=== PATIENT | female | born 1940 | race Caucasian/White ===

== ENCOUNTER 2021-05-26 20:15 | Inpatient (IN) | payer MEDICARE, OTHER ==
[~2021-05-26] VITALS: Ht 157.5 cm; Wt 77.1 kg
[2021-05-26 20:35] LABS: HEMOGLOBIN 10.4 gm/dl (12.3-15.3); RED BLOOD COUNT 3.59 M/UL (4.00-5.10); WHITE BLOOD COUNT 23.5 K/UL (4.5-11.0)
[2021-05-26 21:22] LABS: BUN/CREATININE RATIO 30 (0-10)
[2021-05-26] MEDS ORDERED: ASPIRIN81 MG PO (23:05)
[2021-05-26] MEDS ORDERED: CETIRIZINE HCL5 MG PO (23:06)
[2021-05-26] MEDS ORDERED: FUROSEMIDE20 MG PO (23:07)
[2021-05-26] MEDS ORDERED: NEURONTIN300 MG PO (23:07)
[2021-05-26] MEDS ORDERED: REMERON 15 MG T15 MG PO (23:08)
[2021-05-26] MEDS ORDERED: EUTHYROX50 MCG PO (23:08)
[2021-05-26] MEDS ORDERED: NIFEDIPINE ER60 M1 PO (23:09)
[2021-05-26] MEDS ORDERED: PROTONIX 40 MG40 M1 PO (23:09)
[2021-05-26] MEDS ORDERED: PREDNISONE 5 MG5 MG PO (23:10)
[2021-05-26] MEDS ORDERED: SENNA LAXATIVE8.6 MG PO (23:11)
[2021-05-26] MEDS ORDERED: ZOLOFT25 MG PO (23:12)
[2021-05-26] MEDS ORDERED: ZOLOFT50 MG PO (23:14)
[2021-05-26] MEDS ORDERED: CARVEDILOL12.5 MG PO (23:15)
[2021-05-26] MEDS ORDERED: KLONOPIN0.5 MG PO (23:18)
[2021-05-26] MEDS ORDERED: MYCOSTATIN POWD15 GM TOP (23:19)
[2021-05-26] MEDS ORDERED: MAGNESIUM OXID400 M1 PO (23:19)
[2021-05-26] MEDS ORDERED: VASCEPA1 GM PO (23:20)
[2021-05-26] MEDS ORDERED: HYDROCODON-ACE1 EAC6 PO (23:21)
[2021-05-26] MEDS ORDERED: MYLANTA COAT-C355 ML PO (23:22)
[2021-05-26] MEDS ORDERED: [UNRECOGNIZED DRUG - MIXTURE] TP (23:23)
[2021-05-27 04:33] LABS: HEMOGLOBIN 9.6 gm/dl (12.3-15.3); RED BLOOD COUNT 3.36 M/UL (4.00-5.10); WHITE BLOOD COUNT 20.3 K/UL (4.5-11.0)
[2021-05-27 05:16] LABS: BUN/CREATININE RATIO 31 (0-10)
--- NOTE | 2021-05-28 03:00 | NUR ---
PATIENT CRYING OUT STATES , "IM SO SICK, I JUST NEED SLEEP. IM SICK , I NEED APPLE JUICE. I CANT BELIEVE I CANT GET MY PAIN MEDICINE LIKE I DO AT THE [facility] AND YOU DIDNT GIVE ME MY PAIN PILL ON TIME THATS WHY IM FEELING THIS WAY." I INFORMED PATIENT THAT I CAN ONLY ADMINISTER MEDICATION HERE THE WAY THE PHYSICIAN HAS IT ORDERED NOT IT ORDERED AT THE [facility]. PATIENT STATES "AT [facility] I GET MY PAIN PILLS MORE OFTEN, AND MY NERVE PILLS." UPON REVIEWING HOME MED REC FROM [facility], PATIENT RECIEVES PAIN MEDICATION EVERY 6 HOURS AND CLONOPIN BID. PATIENT INFORMED OF THIS.
[2021-05-28 04:53] LABS: HEMOGLOBIN 8.8 gm/dl (12.3-15.3); RED BLOOD COUNT 3.1 M/UL (4.00-5.10); WHITE BLOOD COUNT 16.6 K/UL (4.5-11.0)
[2021-05-29 05:02] LABS: HEMOGLOBIN 9.3 gm/dl (12.3-15.3); RED BLOOD COUNT 3.26 M/UL (4.00-5.10); WHITE BLOOD COUNT 14.4 K/UL (4.5-11.0)
[2021-05-30 03:34] LABS: HEMOGLOBIN 9.8 gm/dl (12.3-15.3); RED BLOOD COUNT 3.45 M/UL (4.00-5.10); WHITE BLOOD COUNT 16.7 K/UL (4.5-11.0)
[2021-05-30 03:44] LABS: BUN/CREATININE RATIO 25 (0-10)
[2021-05-31 00:47] LABS: HEMOGLOBIN 9.7 gm/dl (12.3-15.3)
[2021-05-31 05:11] LABS: HEMOGLOBIN 9.7 gm/dl (12.3-15.3); RED BLOOD COUNT 3.4 M/UL (4.00-5.10); WHITE BLOOD COUNT 15.8 K/UL (4.5-11.0)
[2021-05-31 05:17] LABS: BUN/CREATININE RATIO 19 (0-10)
[2021-06-01 05:55] LABS: RED BLOOD COUNT 3.45 M/UL (4.00-5.10)
[2021-06-01 06:10] LABS: BUN/CREATININE RATIO 17 (0-10)
[2021-06-02 07:23] LABS: HEMOGLOBIN 9.6 gm/dl (12.3-15.3); RED BLOOD COUNT 3.42 M/UL (4.00-5.10); WHITE BLOOD COUNT 17.9 K/UL (4.5-11.0)
[2021-06-02 07:40] LABS: BUN/CREATININE RATIO 19 (0-10)
[2021-06-03 04:35] LABS: HEMOGLOBIN 9.3 gm/dl (12.3-15.3); RED BLOOD COUNT 3.33 M/UL (4.00-5.10); WHITE BLOOD COUNT 18.1 K/UL (4.5-11.0)
[2021-06-03] MEDS ORDERED: KLONOPIN0.5 MG PO (11:26)
[2021-06-03] MEDS ORDERED: CEFUROXIME500 MG PO (11:26)
[2021-06-03] MEDS ORDERED: REMERON 15 MG T15 MG PO (11:26)
[2021-06-03] MEDS ORDERED: HYDROCODON-ACE1 EAC6 PO (11:26)
[2021-06-03] MEDS ORDERED: NEURONTIN300 MG PO (11:26)
--- NOTE | 2021-06-03 20:23 | NUR ---
patient discharged to [facility] ems services for transport to [facility]
== END 2021-06-03 20:25 | DRG 682 ==
LOC: ER1 20:15 → 3 EAST 22:08 → CDU 22:08 → 3 EAST 05-27 15:41 → MED SURG 4 05-28 23:27
PROVIDERS: Family Medicine; Internal Medicine; Internal Medicine Nephrology; Physician Assistant; ADMIT Internal Medicine
PROC: B24BZZZ Ultrasonography of Heart with Aorta (ICD-10-PCS; principal; 2021-05-28)
DX: N17.9 Acute kidney failure, unspecified (principal); J96.01 Acute respiratory failure with hypoxia; J18.9 Pneumonia, unspecified organism; S22.080A Wedge compression fracture of T11-T12 vertebra, initial encounter for closed fracture; I50.22 Chronic systolic (congestive) heart failure; E87.1 Hypo-osmolality and hyponatremia; N30.00 Acute cystitis without hematuria; E86.0 Dehydration; Z20.822 Contact with and (suspected) exposure to COVID-19; R53.81 Other malaise; M35.3 Polymyalgia rheumatica; J30.9 Allergic rhinitis, unspecified; F41.9 Anxiety disorder, unspecified; F32.A Depression, unspecified; K21.9 Gastro-esophageal reflux disease without esophagitis; R73.9 Hyperglycemia, unspecified; E03.9 Hypothyroidism, unspecified; E87.5 Hyperkalemia; E78.5 Hyperlipidemia, unspecified; M54.9 Dorsalgia, unspecified; G89.29 Other chronic pain; I11.0 Hypertensive heart disease with heart failure; T38.0X5A Adverse effect of glucocorticoids and synthetic analogues, initial encounter; M51.36 Other intervertebral disc degeneration, lumbar region; Z74.01 Bed confinement status; Z79.52 Long term (current) use of systemic steroids; Z93.3 Colostomy status; Z98.890 Other specified postprocedural states; Z88.2 Allergy status to sulfonamides; Z88.8 Allergy status to other drugs, medicaments and biological substances; Z91.040 Latex allergy status; Z80.8 Family history of malignant neoplasm of other organs or systems; Z79.82 Long term (current) use of aspirin
CPT/HCPCS: ECHO; 36415; 36600; 51702; 71045; 80048; 80053; 81001; 82550; 82553; 82570; 82803; 83605; 83690; 83735; 83874; 84295; 84300; 84484; 85014; 85018; 85025; 85027; 85610; 87040; 87086; 89050; 92610; 93005; 93306; 94640; 94664; 94760; 96374; 96375; 99285; G0378 ×2; J0610; J0696; J1650; J2185; J2405; U0002

== ENCOUNTER 2021-06-09 16:16 | Inpatient (IN) | payer MEDICARE, OTHER ==
[~2021-06-09] VITALS: Ht 157.5 cm; Wt 77.1 kg
[~2021-06-09 16:16] MED LIST: ASPIRIN81 MG PO; CARVEDILOL12.5 MG PO; CEFUROXIME500 MG PO; CETIRIZINE HCL5 MG PO; EUTHYROX50 MCG PO; FUROSEMIDE20 MG PO; HYDROCODON-ACE1 EAC6 PO; KLONOPIN0.5 MG PO; MAGNESIUM OXID400 M1 PO; MYCOSTATIN POWD15 GM TOP; MYLANTA COAT-C355 ML PO; NEURONTIN300 MG PO; NIFEDIPINE ER60 M1 PO; PREDNISONE 5 MG5 MG PO; PROTONIX 40 MG40 M1 PO; REMERON 15 MG T15 MG PO; SENNA LAXATIVE8.6 MG PO; VASCEPA1 GM PO; ZOLOFT25 MG PO; ZOLOFT50 MG PO; [UNRECOGNIZED DRUG - MIXTURE] TP
[2021-06-09 16:41] LABS: HEMOGLOBIN 9.6 gm/dl (12.3-15.3); RED BLOOD COUNT 3.41 M/UL (4.00-5.10); WHITE BLOOD COUNT 19.5 K/UL (4.5-11.0)
[2021-06-09 17:06] LABS: BUN/CREATININE RATIO 35 (0-10)
[2021-06-09 23:28] LABS: BUN/CREATININE RATIO 39 (0-10)
[2021-06-10 06:41] LABS: RED BLOOD COUNT 3.16 M/UL (4.00-5.10); WHITE BLOOD COUNT 15.7 K/UL (4.5-11.0)
[2021-06-10 07:07] LABS: BUN/CREATININE RATIO 34 (0-10)
[2021-06-10 09:30] LABS: BUN/CREATININE RATIO 33 (0-10)
[2021-06-10 12:43] LABS: BUN/CREATININE RATIO 35 (0-10)
[2021-06-11 06:54] LABS: HEMOGLOBIN 8.6 gm/dl (12.3-15.3); RED BLOOD COUNT 3.05 M/UL (4.00-5.10); WHITE BLOOD COUNT 14.6 K/UL (4.5-11.0)
[2021-06-11 16:04] LABS: BUN/CREATININE RATIO 27 (0-10)
[2021-06-12 05:49] LABS: BUN/CREATININE RATIO 27 (0-10)
--- NOTE | 2021-06-12 17:59 | NUR ---
patient had a critical potassium of 6.3. called to dr. lugo and he gave new orders. will continue to monitor patient.
[2021-06-14 04:06] LABS: HEMOGLOBIN 8.5 gm/dl (12.3-15.3); RED BLOOD COUNT 3.02 M/UL (4.00-5.10); WHITE BLOOD COUNT 13.2 K/UL (4.5-11.0)
[2021-06-15 04:43] LABS: HEMOGLOBIN 8.7 gm/dl (12.3-15.3); RED BLOOD COUNT 3.19 M/UL (4.00-5.10)
[2021-06-15 05:17] LABS: BUN/CREATININE RATIO 31 (0-10)
[2021-06-17 05:28] LABS: HEMOGLOBIN 9.1 gm/dl (12.3-15.3); RED BLOOD COUNT 3.29 M/UL (4.00-5.10); WHITE BLOOD COUNT 10.7 K/UL (4.5-11.0)
[2021-06-18 06:36] LABS: HEMOGLOBIN 8.8 gm/dl (12.3-15.3); RED BLOOD COUNT 3.17 M/UL (4.00-5.10); WHITE BLOOD COUNT 10.3 K/UL (4.5-11.0)
[2021-06-19 08:15] LABS: HEMOGLOBIN 8.5 gm/dl (12.3-15.3); RED BLOOD COUNT 3.2 M/UL (4.00-5.10); WHITE BLOOD COUNT 11.9 K/UL (4.5-11.0)
[2021-06-19] MEDS ORDERED: FLORINEF 0.1 M0.1 MG PO (08:52)
[2021-06-20 07:05] LABS: HEMOGLOBIN 7.9 gm/dl (12.3-15.3)
[2021-06-20 07:06] LABS: RED BLOOD COUNT 2.82 M/UL (4.00-5.10); WHITE BLOOD COUNT 15.2 K/UL (4.5-11.0)
[2021-06-21 07:48] LABS: HEMOGLOBIN 9.1 gm/dl (12.3-15.3); WHITE BLOOD COUNT 12.3 K/UL (4.5-11.0)
[2021-06-21 07:49] LABS: RED BLOOD COUNT 3.36 M/UL (4.00-5.10)
[2021-06-22 07:10] LABS: RED BLOOD COUNT 3.28 M/UL (4.00-5.10); WHITE BLOOD COUNT 12.4 K/UL (4.5-11.0)
[2021-06-23 05:46] LABS: HEMOGLOBIN 8.5 gm/dl (12.3-15.3); RED BLOOD COUNT 3.11 M/UL (4.00-5.10); WHITE BLOOD COUNT 13.3 K/UL (4.5-11.0)
[2021-06-24 05:50] LABS: BUN/CREATININE RATIO 49 (0-10)
[2021-06-24 05:51] LABS: HEMOGLOBIN 8.6 gm/dl (12.3-15.3); RED BLOOD COUNT 3.07 M/UL (4.00-5.10); WHITE BLOOD COUNT 14.9 K/UL (4.5-11.0)
[2021-06-25 06:51] LABS: HEMOGLOBIN 8.3 gm/dl (12.3-15.3); RED BLOOD COUNT 3.1 M/UL (4.00-5.10); WHITE BLOOD COUNT 14.3 K/UL (4.5-11.0)
[2021-06-25 07:53] LABS: BUN/CREATININE RATIO 44 (0-10)
[2021-06-26 06:55] LABS: HEMOGLOBIN 8.5 gm/dl (12.3-15.3); RED BLOOD COUNT 3.31 M/UL (4.00-5.10); WHITE BLOOD COUNT 13.4 K/UL (4.5-11.0)
[2021-06-26 07:17] LABS: BUN/CREATININE RATIO 47 (0-10)
[2021-06-26] MEDS ORDERED: KLONOPIN0.5 MG PO (11:35)
[2021-06-26] MEDS ORDERED: PERCOCET 10-321 EACH PO (11:35)
[2021-06-26] MEDS ORDERED: NEURONTIN300 MG PO (11:35)
--- NOTE | 2021-06-26 16:04 | NUR ---
REPORT CALL[facility] TO [facility] ARRANG[facility] FOR TRANSPORT.
== END 2021-06-26 17:41 | DRG 643 ==
LOC: ER1 16:16 → MED SURG 4 17:30 → CDU 17:30 → 3 EAST 06-10 14:05 → MED SURG 4 06-10 18:00
PROVIDERS: Emergency Medicine; Internal Medicine; Internal Medicine Nephrology; Physician Assistant; Physician Assistant Medical; ADMIT Internal Medicine
PROC: 8E0ZXY6 Isolation (ICD-10-PCS; principal; 2021-06-17)
PROC: 3E0333Z Introduction of Anti-inflammatory into Peripheral Vein, Percutaneous Approach (ICD-10-PCS; 2021-06-17)
DX: E27.40 Unspecified adrenocortical insufficiency (principal); U07.1 COVID-19; J15.9 Unspecified bacterial pneumonia; E87.1 Hypo-osmolality and hyponatremia; J96.11 Chronic respiratory failure with hypoxia; Z20.822 Contact with and (suspected) exposure to COVID-19; I50.32 Chronic diastolic (congestive) heart failure; I13.0 Hypertensive heart and chronic kidney disease with heart failure and stage 1 through stage 4 chronic kidney disease, or unspecified chronic kidney disease; N17.9 Acute kidney failure, unspecified; E87.2 Acidosis; R53.81 Other malaise; E03.9 Hypothyroidism, unspecified; E87.5 Hyperkalemia; M54.9 Dorsalgia, unspecified; G89.29 Other chronic pain; M35.3 Polymyalgia rheumatica; K21.9 Gastro-esophageal reflux disease without esophagitis; F41.9 Anxiety disorder, unspecified; L89.621 Pressure ulcer of left heel, stage 1; L89.611 Pressure ulcer of right heel, stage 1; E78.5 Hyperlipidemia, unspecified; F32.A Depression, unspecified; S22.089S Unspecified fracture of T11-T12 vertebra, sequela; Z87.01 Personal history of pneumonia (recurrent); Z98.890 Other specified postprocedural states; Z93.3 Colostomy status; Z88.2 Allergy status to sulfonamides; Z91.040 Latex allergy status; Z88.8 Allergy status to other drugs, medicaments and biological substances; Z79.82 Long term (current) use of aspirin; Z79.52 Long term (current) use of systemic steroids; Z87.440 Personal history of urinary (tract) infections; Z80.8 Family history of malignant neoplasm of other organs or systems; Z79.899 Other long term (current) drug therapy; Z74.01 Bed confinement status
CPT/HCPCS: 36415; 71045; 80048; 80053; 81001; 82436; 82533; 82550; 82553; 82962; 83605; 83735; 83874; 83880; 83935; 84132; 84133; 84300; 84443; 84484; 85025; 85027; 86140; 87040; 93005; 94640; 94664; 94760; 96372; 96374; 96375; 99285; G0378; J0692; J0834; J1100; J1650; U0002

== ENCOUNTER 2021-10-05 16:05 | Emergency (ER) | payer MEDICARE, OTHER ==
[~2021-10-05 16:05] MED LIST changes: +FLORINEF 0.1 M0.1 MG PO; +PERCOCET 10-321 EACH PO
== END 2021-10-05 19:48 | disposition home or self-care (01) ==
LOC: ER1 16:05
DX: R13.10 Dysphagia, unspecified (principal)
CPT/HCPCS: 70360; 71045; 99284